=== PATIENT | female | born 1970 | race Caucasian/White ===

== ENCOUNTER 2021-12-31 10:57 | Emergency (ER) | payer BC, OTHER ==
[~2021-12-31] VITALS: Ht 162.6 cm; Wt 82.0 kg
[2021-12-31 11:18] VITALS: BP 119/82
[2021-12-31] MEDS ORDERED: ACETAMINOPHEN 325MG TABLET PO ONE (11:45)
[2021-12-31] MEDS ORDERED: TOPUD PO (14:12)
== END 2021-12-31 14:00 | disposition home or self-care (01) ==
LOC: ER 10:57
DX: S20.212A Contusion of left front wall of thorax, initial encounter (principal); W06.XXXA Fall from bed, initial encounter; Y93.89 Activity, other specified; Y92.9 Unspecified place or not applicable; E78.00 Pure hypercholesterolemia, unspecified; I10 Essential (primary) hypertension; Z98.890 Other specified postprocedural states
CPT/HCPCS: 71101; 99283